=== PATIENT | female | born 1970 | race Caucasian/White ===

== ENCOUNTER 2025-03-31 17:29 | Emergency (ER) | payer OTHER, SELFPAY ==
[2025-03-31 17:43] VITALS: BP 124/67; PULSE 71; RESP 18; TEMP 36.6; O2SAT 100
--- OUTSIDE RECORDS SUMMARY | 2025-03-31 17:46 | XMS_ITS | Clinical Summary ---
Author Organization [facility] 1 [address] [facility] Address [address] [place] [address] Phone Care Team Providers Care Stone Derrickman And Rigger Name Role Phone Amrit De La Cruz MD Primary Care Provider [phone] Allergies No known active allergies Medications citalopram (CeleXA) 20 mg tablet Take 20 mg by mouth daily at bedtime. Active traZODone (DESYREL) 50 mg tablet Take 50 mg by mouth daily at bedtime. Active ondansetron (ZOFRAN ODT) 4 mg Tablet, Rapid Dissolve Take 1 Tablet (4 mg) by mouth every 8 hours as needed for Nausea/Emesis . Dissolve tablet on top of tongue, then swallow with saliva. 20 Tablet 07/26/2023 Active estradioL (ESTRACE) 1 mg tablet Take 1 Tablet (1 mg) by mouth daily. 90 Tablet 4 08/10/2024 Active progesterone micronized (Prometrium) 100 mg Capsule Take 1 Capsule (100 mg) by mouth daily. 90 Capsule 4 08/10/2024 Active rOPINIRole (REQUIP) 0.5 mg tablet TAKE 2 TABLETS BY MOUTH ONCE DAILY 3 HOURS PRIOR TO BEDTIME 08/16/2024 Active progesterone micronized (Prometrium) 200 mg Capsule Take 2 Capsules (400 mg) by mouth daily. 20 Capsule 11/23/2024 Active solifenacin (VESICARE) 10 mg Tablet Take 1 Tablet (10 mg) by mouth daily. 30 Tablet 12 01/25/2025 Active Active Problems Problem Noted Date Diagnosed Date RUDY (stress urinary incontinence, female) 2024 Encounters Date Type Department Care Team Description 03/13/2025 External Device Data STL ABSTRACTION Provider, Abstract 03/13/2025 External Device Data STL ABSTRACTION Provider, Abstract 03/13/2025 External Device Data STL ABSTRACTION Provider, Abstract 03/06/2025 External Device Data STL ABSTRACTION Provider, Abstract 02/28/2025 External Device Data STL ABSTRACTION Provider, Abstract 02/20/2025 External Device Data STL ABSTRACTION Provider, Abstract 02/20/2025 External Device Data STL ABSTRACTION Provider, Abstract 02/15/2025 7:15 AM CDT - 02/15/2025 9:03 AM CDT Emergency [facility] Emergency Medicine [address] [place] [id number] Pawan Fierro MD Right ankle strain, initial encounter (Primary Dx); Knee strain, left, initial encounter; Encounter for examination following a fall Discharge Disposition: Home or Self Care 02/15/2025 Travel 01/25/2025 10:50 AM CDT Office Visit [address] [place] [id number] Lesa Palomares MD Postoperative follow-up (Primary Dx) 01/17/[address] [place] [phone] Lesa Palomares MD Appointment Notification from Last 3 Months Immunizations Immunization Administration Dates Next Due (ADACEL/BOOSTRIX)(10 YR UP) TDAP VACCINE, 0.5ML, IM 08/27/2023 INFLUENZA VACCINE QUADRIVALENT 6 MOS UP PF IM Family History Medical History Relation Name Comments Diabetes Brother Enrico Ortega Mental illness Brother Enrico Ortega Cancer Maternal Grandmother Tejal Cope Leukemi a Asthma Mother Zainab Maynard Blood Clots Paternal Grandmother Angelica Ortega Liver Disease Son Jonathan Pablo Colon Cancer Neg Hx Relation Name Status Comments Brother Enrico Ortega Alive Maternal Grandmother Tejal Cope Alive Mother Zainab Maynard Alive Paternal Grandmother Angelica Ortega Alive Son Jonathan Pabol Alive Social History Tobacco Use Types Packs/Day Years Used Date Smoking Tobacco: Never Smokeless Tobacco: Never Tobacco Cessation:Counseling Given: No Alcohol Use Standard Drinks/Week Comments Yes 0 (1 standard drink = 0.6 oz pur e alcohol) Occas couple times month Feeling Safe Answer Date Recorded Are you in a relationship wi th someone who hurts you emotionally and/or physically? No 02/15/2025 Food Insecurity Answer Date Recorded Patient needs follow up regardin 10/25/2024 Transportation Needs Answer Date Record ed Patient needs follow up regardin 10/25/2024 Utility Needs Answer Date Recorded Patient needs follow up regardin 10/25/2024 Comments No Sex and Gender Information Value Date Recorded Sex Assigned at Not on file Legal Sex Female 8:42 AM VICE PRESIDENT OF COMPLIANCE Gender Identity Not on file Sexual Orientation Not on file Occupation Industry Job Start Date Job End Date Not on file Not on file Not on file Not on file Last Filed Vital Signs Vital Sign Reading Time Taken Comments Blood Pressure 120/68 02/15/2025 8:00 AM CDT Pulse 68 02/15/2025 8:00 AM CDT Temperature 37.1 C (98.7 F) 02/15/2025 7:20 AM CDT Respiratory Rate 18 02/15/2025 7:20 AM CDT Oxygen Saturation 94% 02/15/2025 8:00 AM CDT Inhaled Oxygen Concentration - - Weight 92.5 kg (204 lb) 02/15/2025 7:20 AM CDT Height 160 cm (5' 3 ) 02/15/2025 7:20 AM CDT Body Mass Index 36.14 02/15/2025 7:20 AM CDT Plan of Treatment Health Maintenance Due Date Last Done Comments Pre-Diabetes and Diabetes Screening 1970 HEPATITIS B VACCINES (1 of 3 - 19+ 3-dose series) 11/20/1987 HPV/Cotest (21-29) 1989 CERVICAL CANCER SCREENING 1998 HPV/Cotest (30-65) 1998 PAP SMEAR 1998 BREAST CANCER SCREENING 2008 FIT-DNA Q 3 years 2013 FIT/FOBT Q 1 year 2013 Flex Sig/CT Colonography Q 5 years 2013 ZOSTER VACCINE (1 of 2) 2018 Preventative Visit- Commercial 07/05/2024 03/12/2017 INFLUENZA VACCINE (#1) 2025 04/20/2017 COLORECTAL SCREENING 06/12/2027 06/12/2024, 06/12/20 24 Colorectal Cancer Screening 06/12/2027 DTAP/TDAP/TD VACCINES (2 - Td or Tdap) 08/27/2033 Medical Devices Implanted Type Area Director Heart Device Identifier Shelf Expiration Date Model / Serial / Lot Sling Advantage Tv Mid Uret [id number] - [id number] Implanted:Qty: 1 on 11/15/2024 by Lesa Palomares MD at [facility] Sling N/A: Vagina [place] [employer] [id number] 07/20/2027 [id number] / / [id number] Procedures Procedure Name Priority Date/Time Associated Diagnosis Comments XR KNEE 3 VW LEFT Stat 02/15/2025 7:5 0 AM CDT XR ANKLE 3+ VW RIGHT Stat 02/15/2025 7:49 AM CDT COLONOSCOPY REPORT 06/12/2024 2: 03 PM VICE PRESIDENT OF COMPLIANCE from Last 3 Months or Most Recently Relevant to Health Maintenance Results * XR KNEE 3 VW LEFT (02/15/2025 7:50 AM CDT) Anatomical Region Laterality Modality Lower Extremity Computed Radiogr aphy 02/15/2025 7:50 AM CDT Impressions 02/15/2025 8:46 AM CDT IMPRESSION: Please see below. Exam: XR KNEE 3 VW LEFT Date/Time of Exam: 02/15/2025 7:50 AM Reason For Exam: Injury, Fall, Swelling, Pain. Diagnosis: See Reason for Exam. Findings: No acute osseous pathology or subluxation. Joint spaces fairly well maintained. Soft tissues nonspecific. Narrative Procedure Note Kar Rick MD - 02/15/2025 IMPRESSION: Please see below. Exam: XR KNEE 3 VW LEFT Date/Time of Exam: 02/15/2025 7:50 AM Reason For Exam: Injury, Fall, Swelling, Pain. Diagnosis: See Reason for Exam. Findings: No acute osseous pathology or subluxation. Joint spaces fairly well maintained. Soft tissues nonspecific. Pawan Fierro MD DIAGNOSTIC IMAGING ORDERABLE S Final Result * XR ANKLE 3+ VW RIGHT (02/15/2025 7:49 AM CDT) Anatomical Region Laterality Modality Ankle / Foot Computed Radiogr aphy 02/15/2025 7:49 AM CDT Impressions 02/15/2025 8:42 AM CDT IMPRESSION: Soft tissue swelling without evidence of an acute osseous abnormality. Narrative 02/15/2025 8:42 AM CDT Exam: XR ANKLE 3+ VW RIGHT Date/Time of Exam: 02/15/2025 7:49 AM Reason For Exam: Fall, Injury, Swelling, Pain. Diagnosis: See Reason for Exam. Comparison: None. Findings: There is no evidence of an acute fracture. There are chronic-appearing bony hypertrophic changes involving the anterior aspect of the distal tibia which may relate to remote injury. The joints are anatomically aligned and appear well-maintained. There is a large plantar calcaneal enthesophyte. There is a 0.5 cm ossific density in the distribution of the posterior tibiotalar joint recess likely reflecting intra-articular debris. There is soft tissue swelling. Procedure Note Chemo Perez, DO - 02/15/2025 Exam: XR ANKLE 3+ VW RIGHT Date/Time of Exam: 02/15/2025 7:49 AM Reason For Exam: Fall, Injury, Swelling, Pain. Diagnosis: See Reason for Exam. Comparison: None. Findings: There is no evidence of an acute fracture. There are chronic-appearing bony hypertrophic changes involving the anterior aspect of the distal tibia which may relate to remote injury. The joints are anatomically aligned and appear well-maintained. There is a large plantar calcaneal enthesophyte. There is a 0.5 cm ossific density in the distribution of the posterior tibiotalar joint recess likely reflecting intra-articular debris. There is soft tissue swelling. IMPRESSION: Soft tissue swelling without evidence of an acute osseous abnormality. us Bibiwpatricia Beto Wooteno DIAGNOSTIC IMAGING ORDERABLE S Final Result * COLONOSCOPY REPORT (06/12/2024 2:03 PM VICE PRESIDENT OF COMPLIANCE) Narrative Procedure Note Jonah Sanchez MD - 06/12/2024 2:03 PM CST [facility] GI Patient Name: Kalli Ortega Procedure Date: 06/12/2024 Date of : 1970 Admit Type: Outpatient Age: 53 Attending MD: Jonah Sanchez , , Procedure: Colonoscopy Indications: High risk colon cancer surveillance: Personal history of colon cancer Providers: Jonah Sanchez Referring MD: Parminder Akers Medicines: Monitored Anesthesia Care Complications: No immediate complications. Procedure: Pre-Anesthesia Assessment: - The risks and benefits of the procedure and the sedation options and risks were discussed with the patient. All questions were answered and informed consent was obtained. - ASA Grade Assessment: II - A patient with mild systemic disease. After I obtained informed consent, the scope was passed under direct vision. Throughout the procedure, the patient's blood pressure, pulse, and oxygen saturations were monitored continuously. The Colonoscope was introduced through the anus and advanced to the ileocolonic anastomosis. The colonoscopy was performed without difficulty. The patient tolerated the procedure well. The quality of the bowel preparation was adequate. Estimated Blood Loss: Estimated blood loss: none. Findings: The perianal and digital rectal examinations were normal. Diverticula were found in the sigmoid colon. There was evidence of a prior end-to-end ileo-colonic anastomosis at the hepatic flexure. This was patent and was characterized by healthy appearing mucosa. Internal hemorrhoids were found during retroflexion. The hemorrhoids were moderate. Impression: - Diverticulosis in the sigmoid colon. - Patent end-to-end ileo-colonic anastomosis, characterized by healthy appearing mucosa. - Internal hemorrhoids. - No specimens collected. Recommendation: - Repeat colonoscopy in 3 - 5 years for surveillance. Jonah Sanchez, 06/12/2024 2:03:45 PM Number of Addenda: 0 Note Initiated On: 06/12/2024 1:34 PM Scope Withdrawal Time 0 hours 6 minutes 14 seconds Scope In: 1:50:51 PM Scope Out: 1:58:21 PM [address] [place], [place] Jonah Sanchez MD GI PROCEDURE ORDERABLES Final Result from Last 3 Months or Most Recently Relevant to Health Maintenance Insurance [facility] EXCHANGE [place] [employer] RX [employer] RX [employer] RX Member Subscriber Plan / Payer (Ef fective 2024-Present) Name:Kalli Ortega Relation to Subscriber:Self Name:Kalli Ortega Subscriber ID:Not on file Payer ID:Not on file Type:RX Commercial Address: [address] Advance Directives For more information, please contact: [phone] * Full Code (Latest Code Status on File) Date Activated Date Inactivated Comments 11/15/2024 8:32 AM 11/15/2024 3:07 PM * Full Code Date Activated Date Inactivated Comments 11/15/2024 5:40 AM 11/15/2024 8:32 AM * Full Code Date Activated Date Inactivated Comments 06/12/2024 1:29 PM 06/12/2024 4:33 PM Care Teams Stone Derrickman And Rigger Relationship Specialty Start Date End Date Amrit De La Cruz MD [address] [address] PCP - General Family Practice 07/26/23
[2025-03-31] MEDS: ondansetron 2 mg/ML SDV 2 mL 8 MG IVP (18:10)
[2025-03-31 18:18] LABS: Glucose Urine UA Negative (Normal); Nitrate Urine Positive (Negative); Specific Gravity, Urine 1.010 (1.005-1.030)
[2025-03-31 18:23] LABS: Add Urine Microscopic? YES
[2025-03-31 18:26] LABS: Hematocrit 40.3 % (36-47); Hemoglobin 13.50 g/dL (11.27-16.99); Mean Corpuscular HGB Conc 33.5 g/dL (30-55); Mean Corpuscular Hemoglobin 30.2 pg (27-33); Mean Corpuscular Volume 90.2 fl (85-98); Nucleated Red Blood Cells % 0 %; Platelet Count 306 10^3/cmm (157-399); Red Blood Count 4.47 10^6/uL (3.85-5.65); White Blood Count 9.18 10^3/uL (3.29-11.43)
--- NOTE | 2025-03-31 18:28 | ECG_ITS ---
[employer] Test Date: 2025-03-31 Pat Name: Kalli Ortega Department: Room: Gender: Female Combine Driver: : 1970 Requested By: Steven Sheehan Order Number: [id number] Reading MD: RANDA BERMAN Measurements Intervals Clint Rate: 59 P: 17 PA: 139 QRS: 4 QRSD: 98 T: 9 QT: 418 QTc: 417 Interpretive Statements SINUS BRADYCARDIA LOW QRS VOLTAGE IN PRECORDIAL LEADS [QRS DEFLECTION < 1.0 mV IN CHEST LEADS] No previous ECG available for comparison Electronically Signed On 03-31-2025 21:34:03 CDT by RANDA BERMAN [email or web address]
[2025-03-31 18:35] LABS: UA Slide Review UA Slide Review Perf
[2025-03-31 18:36] VITALS: BP 116/73; PULSE 64; RESP 16; O2SAT 100
[2025-03-31 18:39] LABS: Troponin(5th) Baseline < 6 ng/L (0-10)
[2025-03-31 18:40] LABS: Alanine Aminotransferase 13 U/L (0-33); Albumin Level 4.5 g/dL (3.5-5.2); Alkaline Phosphatase 96 U/L (35-105); Anion Gap 17.0 (5-19); Aspartate Amino Transferase 20 U/L (0-32); Blood Urea Nitrogen 10 mg/dL (6-20); Calcium 10.5 mg/dL (8.5-10.5); Carbon Dioxide 24 mmol/L (22-29); Chloride 104 mmol/L (98-107); Globulin 2.6 g/dL (1.3-4.6); Glucose 91 mg/dL (65-115); Lipase 50 U/L (13-60); Osmolality Calculated 291 mOsm/kg (285-295); Potassium 4.0 mmol/L (3.5-5.1); Sodium 141 mmol/L (136-145); Total Protein 7.1 g/dL (6.6-8.7)
--- NOTE | 2025-03-31 18:48 | W.ED.GENADLT ---
HPI - General Adult General: Chief complaint: General Medical Stated complaint: generalized weakness, N/V Time Seen by Provider: 03/31/25 17:47 History of Present Illness: Patient is a 54-year-old female who presents with a complex of symptoms that began on . She reports experiencing chest pain described as 'under my boob' while on a field trip. On Wednesday morning, she developed significant nausea after eating only three bites of food at lunch. Throughout Wednesday evening, she was only able to nibble small amounts of food due to persistent nausea. This morning, she experienced what she initially thought was a hot flash with sudden onset of heat and sweating while at her mother's house. After returning home, she attempted to brush her teeth but found the toothpaste taste intolerable, which triggered vomiting of what she describes as 'acid' without food content. Subsequently, she felt temporarily improved and boarded a bus. She developed a headache, which she attributes to another passenger's perfume, and took ibuprofen for relief. After falling asleep for approximately an hour, she awoke feeling better. However, while watching a game, she experienced another episode of feeling hot, sweating, and internal shakiness. She attempted to eat a hahn jalape?o pizza but found it tasted abnormally sweet and could not tolerate it. She was able to consume about half a cup of chili without issues. Her symptoms progressively worsened, including blurred vision despite wearing glasses. Her boss called 911 after being informed of her condition. Initial blood pressure recorded by EMS was 180/120, which subsequently decreased. The patient reports ongoing episodic hot flashes, intermittent nausea, significant dizziness upon standing, and a sensation of head heaviness and grogginess. She also mentions a sensation of food getting stuck in her throat when eating. Patient denies fever, diarrhea, or respiratory symptoms. Related Data Home Medications ?Medication ?Instructions ?Recorded ?Confirmed citalopram 10 mg tablet (Celexa) 10 mg PO DAILY 02/25/23 01/19/25 trazodone 50 mg tablet 50 mg PO DAILY 02/25/23 01/19/25 ropinirole 0.5 mg tablet 0.5 mg PO DAILY 07/28/23 01/19/25 estradiol 1 mg tablet 1 mg PO QDAY 01/19/25 01/19/25 progesterone micronized 100 mg 100 mg PO DAILY 01/19/25 01/19/25 capsule solifenacin 5 mg tablet 5 mg PO QDAY 01/19/25 01/19/25 Previous Rx's ?Medication ?Instructions ?Recorded cefdinir 300 mg capsule 300 mg PO BID #14 caps 03/31/25 ondansetron 4 mg disintegrating 4 mg PO Q6H PRN nausea and 03/31/25 tablet vomiting #14 tabs Allergies Allergy/AdvReac Type Severity Reaction Status Date / Time No Known Allergies Allergy Unverified 01/19/25 10:35 Review of Systems Narrative: Constitutional: Denies fever. Reports episodic hot flashes with sweating. HEENT: Reports blurred vision even with glasses. Abnormal taste perception (toothpaste tasted horrible, pizza tasted abnormally sweet). Cardiovascular: Reports chest pain 'under my boob' on . Respiratory: Denies cough or other respiratory symptoms. Gastrointestinal: Reports nausea, one episode of vomiting 'acid', sensation of food getting stuck in throat when eating. Musculoskeletal: Reports swollen ankle from injury one month ago that has not healed. Neurological: Reports dizziness upon standing, headache, feeling of head heaviness and grogginess. Psychiatric: Reports feeling shaky 'on the inside'. PFS ED PFSH: Medical History Encounter for physical examination related to employment Social History Smoking and tobacco/nicotine status: former use of tobacco/nicotine Physical Exam Const: COMMON NORMALS: no acute distress GENERAL APPEARANCE: cooperative; not ill appearing and not frail appearing HENMT: COMMON NORMALS: normocephalic, atraumatic and Normal external nose present HEAD & SCALP: normocephalic and atraumatic FACE & SINUS: normal facial exam and face symmetric NOSE: Normal external nose present Eye: COMMON NORMALS: Equal, round and reactive pupils present and EOMs intact bilaterally PUPIL: Yes Equal, round and reactive pupils present Neck/C-Spine: GENERAL: Yes trachea midline Chest: CHEST: Yes Symmetrical chest wall rise Resp: COMMON NORMALS: normal respiratory effort, No retractions, No use of accessory muscles and clear to auscultation bilaterally AUSCULTATION: clear to auscultation bilaterally Cardio: COMMON NORMALS: regular rate and regular rhythm RATE: regular rate RHYTHM: regular rhythm GI: COMMON NORMALS: Normal to inspection, nondistended, normoactive bowel sounds present Extremity: COMMON NORMALS: no pedal edema Neuro: LISSA COMA SCALE: document GCS findings [place] coma scale eye opening: Spontaneous Lissa coma scale verbal response: Orientated Lissa coma scale motor response: Obey commands Lissa coma scale total score: 15 SENSORY EXAM: Yes extremities (intact) Psych: COMMON NORMALS: speech normal SPEECH: Yes normal speech Skin: COMMON NORMALS: no rashes or lesions noted GENERAL SKIN EXAM: no rashes or lesions noted Course Vital Signs: Vital signs: Vital Signs Temperature 97.9 F 03/31/25 17:43 Pulse Rate 72 03/31/25 19:54 Respiratory Rate 16 03/31/25 19:54 Blood Pressure 117/64 03/31/25 19:54 Pulse Oximetry 100 03/31/25 19:54 Oxygen Delivery Me thod Room Air 03/31/25 19:54 MDM - General Adult Medical Decision Making EKG shows a sinus bradycardia with a normal axis. Rate is 60. No ST wave changes. Intervals otherwise normal. Blood pressure is normal. Other vitals are normal. She is afebrile. She is feeling improved after fluids and Zofran. CBC BMP are normal. Liver enzymes are normal. Troponin is nondetectable. Swabs for flu COVID and RSV are negative. She does have a 3+ leukocyte esterase 51-100 whites urine, for which she is given Rocephin. She will be sent home on antibiotics Lab Data 03/31/25 18:15 03/31/25 18:15 Laboratory Results WBC 9.18 10^3/uL (3.29-11.43) 03/31/25 18:15 RBC 4.47 10^6/uL (3.85-5.65) 03/31/25 18:15 Hgb 13.50 g/dL (11.27-16.99) 03/31/25 18:15 Hct 40.3 % (36-47) 03/31/25 18:15 MCV 90.2 fl (85-98) 03/31/25 18:15 MCH 30.2 pg (27-33) 03/31/25 18:15 MCHC 33.5 g/dL (30-55) 03/31/25 18:15 RDW 12.3 % (12.1-15.1) 03/31/25 18:15 Plt Count 306 10^3/cmm (157-399) 03/31/25 18:15 MPV 10.5 fL (7.4-10.4) H 03/31/25 18:15 Neut % (Auto) 54.5 % 03/31/25 18:15 Lymph % (Auto) 35.2 % 03/31/25 18:15 Morton % (Auto) 7.1 % 03/31/25 18:15 Eos % (Auto) 2.2 % 03/31/25 18:15 Baso % (Auto) 0.9 % 03/31/25 18:15 Neut # (Auto) 5.01 10^3/uL (1.8-7.7) 03/31/25 18:15 Lymph # (Auto) 3.2 10^3/uL (0.8-4.8) 03/31/25 18:15 Morton # (Auto) 0.7 10^3/uL (0.2-0.9) 03/31/25 18:15 Eos # (Auto) 0.2 10^3/uL (0.0-0.8) 03/31/25 18:15 Baso # (Auto) 0.1 10^3/uL (0.0-0.1) 03/31/25 18:15 Nucleated RBC % (auto) 0 % 03/31/25 18:15 Nucleated RBCs # 0.0 /100WBC 03/31/25 18:15 Sodium 141 mmol/L (136-145) 03/31/25 18:15 Potassium 4.0 mmol/L (3.5-5.1) 03/31/25 18:15 Chloride 104 mmol/L (98-107) 03/31/25 18:15 Carbon Dioxide 24 mmol/L (22-29) 03/31/25 18:15 Anion Gap 17.0 (5-19) 03/31/25 18:15 BUN 10 mg/dL (6-20) 03/31/25 18:15 Creatinine 0.8 mg/dL (0.5-0.9) 03/31/25 18:15 GFR Calculation 74.2 mL/min (90-130) L 03/31/25 18:15 Glucose 91 mg/dL (65-115) 03/31/25 18:15 Calculated Osmolality 291 mOsm/kg (285-295) 03/31/25 18:15 Calcium 10.5 mg/dL (8.5-10.5) 03/31/25 18:15 Total Bilirubin 0.2 mg/dL (0.15-1.2) 03/31/25 18:15 AST 20 U/L (0-32) 03/31/25 18:15 ALT 13 U/L (0-33) 03/31/25 18:15 Alkaline Phosphatase 96 U/L (35-105) 03/31/25 18:15 Troponin T Baseline < 6 ng/L (0-10) 03/31/25 18:15 C-Reactive Protein 3.0 mg/L (0.0-4.9) 03/31/25 18:15 Total Protein 7.1 g/dL (6.6-8.7) 03/31/25 18:15 Albumin 4.5 g/dL (3.5-5.2) 03/31/25 18:15 Globulin 2.6 g/dL (1.3-4.6) 03/31/25 18:15 Lipase 50 U/L (13-60) 03/31/25 18:15 Urine Color Yellow (Yellow) 03/31/25 18:02 Urine Appearance Cloudy (CLEAR) A 03/31/25 18:02 Urine pH 6.5 (5-7) 03/31/25 18:02 Ur Specific [place] 1.010 (1.005-1.030) 03/31/25 18:02 Urine Protein Negative (Negative) 03/31/25 18:02 Urine Glucose (UA) Negative (Normal) 03/31/25 18:02 Urine Ketones Negative (Negative) 03/31/25 18: Urine Blood Negative (Negative) 03/31/25 18:02 Urine Nitrate Positive (Negative) A 03/31/25 18:02 Urine Bilirubin Negative (Negative) 03/31/25 18:02 Urine Urobilinogen 0.2 mg/dL (Negative) 03/31/25 18:02 Ur Leukocyte Esterase 3+ (Negative) A 03/31/25 18:02 Urine RBC 0-2 /hpf (0-2) 03/31/25 18:02 Urine WBC 51-100 /hpf (0-5) H 03/31/25 18:02 Ur Squamous Epith Cells 0-5 /hpf (0-5) 03/31/25 18:02 Amorphous Sediment Not Reportable 03/31/25 18:02 Urine Bacteria 4+ /hpf (NONE) H 03/31/25 18:02 Hyaline Casts 7.01 /lpf 03/31/25 18:02 Influenza A (PCR) Negative (Negative) 03/31/25 18:18 Influenza Type B (PCR) Negative (Negative) 03/31/25 18:18 RSV (PCR) Negative (Negative) 03/31/25 18:18 SARS-CoV-2 (PCR) Negative (Negative) 03/31/25 18:18 No radiology studies performed this visit Discharge Plan Discharge Patient Disposition: Home Clinical Impression: UTI (urinary tract infection) Condition: Stable Prescriptions: New ondansetron 4 mg tablet,disintegrating 4 mg PO Q6H PRN (Reason: nausea and vomiting) Qty: 14 0RF cefdinir 300 mg capsule 300 mg PO BID Qty: 14 0RF No Action ropinirole 0.5 mg tablet 0.5 mg PO DAILY estradiol 1 mg tablet 1 mg PO QDAY progesterone micronized 100 mg capsule 100 mg PO DAILY solifenacin 5 mg tablet 5 mg PO QDAY trazodone 50 mg tablet 50 mg PO DAILY citalopram [Celexa] 10 mg tablet 10 mg PO DAILY Discharge Orders: Discharge ED (Routine); Ordered 03/31/25 Ordered By: Steven Campbell Referrals: Edwin Rg FNP [Primary Care Provider, Family Practice] - 1-3 days Patient Instructions: Urinary Tract Infection in Women (ED), Opioid Safety, Pain Management, Patient Portal & Aiden Instructions Activity Restrictions/Additional Instructions: Antibiotics as directed. Stay hydrated. Watch for fevers return for fevers greater than 100 ?F despite antibiotics, vomiting liquids or medications, any other concerning symptoms. Follow-up with your doctor next week. Call Wednesday for an appointment. Print Language: Latvian Coding Level of Care Code ED Vegetable Inspector for Monica Machado
[2025-03-31 19:07] LABS: Respiratory Syncytial Virus Ce NEGATIVE (Negative); SARS-CoV-2 PCR NEGATIVE (Negative)
--- NOTE | 2025-03-31 19:08 | PC.NURSE ---
THIS NURSE ASSUMED ARE @ 6281.
[2025-03-31] MEDS: cefTRIAXone 1,000 mg SDV 1000 MG IVP (19:49)
[2025-03-31 19:54] VITALS: BP 117/64; PULSE 72; RESP 16; O2SAT 100
--- NOTE | 2025-03-31 20:13 | ECG_ITS ---
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
== END 2025-03-31 20:20 | disposition home or self-care (01) ==
PROVIDERS: Emergency Provider Emergency Medicine; PCP Nurse Practitioner Family
DX: N39.0 Urinary tract infection, site not specified (principal); Z11.52 Encounter for screening for COVID-19
CPT/HCPCS: 36415; 80053; 81001; 83690; 84484; 85025; 86140; 87077; 87086; 87186; 87637; 93005; 96361; 96374; 96375; 99284; J0696; J2405; J7030

== ENCOUNTER → 2025-04-24 13:40 | Outpatient (BNVA) | payer OTHER, SELFPAY | PROVIDERS: PCP Nurse Practitioner Family; Visit Provider Nurse Practitioner Family | DX: R39.9 Unspecified symptoms and signs involving the genitourinary system (principal) | CPT/HCPCS: 81000 ==

== ENCOUNTER → 2025-05-02 10:05 | Outpatient (BNVA) | payer OTHER, SELFPAY | PROVIDERS: PCP Nurse Practitioner Family; Visit Provider Specialist | DX: M17.0 Bilateral primary osteoarthritis of knee (principal); M06.4 Inflammatory polyarthropathy; G89.29 Other chronic pain | CPT/HCPCS: 36415; 73560; 73565; 80053; 84550; 85025; 85651; 86140; 86200; 86225; 86235; 86431 ==

== ENCOUNTER 2025-06-05 19:48 | Outpatient (CLI) | payer OTHER, SELFPAY | END 2025-06-05 19:49 | disposition home or self-care (01) | LOC: SLEEP 19:49 | PROVIDERS: PCP Nurse Practitioner Family; Referring Provider Nurse Practitioner Family; Visit Provider Internal Medicine Pulmonary Disease | DX: G47.30 Sleep apnea, unspecified (principal) | CPT/HCPCS: 95810 ==